=== PATIENT | female | born 1955 | race Two or more races ===

== ENCOUNTER → 2019-09-04 | Emergency (ER) | payer OTHER ==
[~2019-09-04] VITALS: Ht 162.6 cm; Wt 63.5 kg
[~2019-09-04] MED LIST: HYDROcodone-ACET 10/325MG TAB PO ONE; MORPHINE SULF INJ 2 MG/ML SYRINGE 1ML IV ONE; ONDANSETRON HCL 4 MG/2 ML VIAL IV ONE; traMADol HCL 50 MG TAB PO ONE
[2019-09-05 02:00] VITALS: BP 135/55
[2019-09-05 03:09] LABS: Urine Bacteria NONE SEEN /hpf (None Seen); Urine Blood Negative /uL (Negative); Urine WBC 2 /hpf (0 - 5)
== END | disposition home or self-care (01) ==
LOC: EDUNIT# 22:56 → EDBD 23:14 → ER 23:18
DX: S42.254A Nondisplaced fracture of greater tuberosity of right humerus, initial encounter for closed fracture (principal); S62.613A Displaced fracture of proximal phalanx of left middle finger, initial encounter for closed fracture; S82.002A Unspecified fracture of left patella, initial encounter for closed fracture; E11.9 Type 2 diabetes mellitus without complications; E78.5 Hyperlipidemia, unspecified; Z88.2 Allergy status to sulfonamides; W01.0XXA Fall on same level from slipping, tripping and stumbling without subsequent striking against object, initial encounter; Y93.89 Activity, other specified; Y92.89 Other specified places as the place of occurrence of the external cause; Y99.8 Other external cause status
CPT/HCPCS: 73030; 73110; 73130; 73560; 81001; 96374; 96375; J2405